=== PATIENT | male | born 1960 | race Caucasian/White ===

== ENCOUNTER 2020-04-08 17:28 | Outpatient (CLI) | payer OTHER, SELFPAY ==
[2020-04-08 17:51] LABS: Add Urine Microscopic? NO; Appearance Urine Clear (Clear); Bilirubin Urine Negative (Negative); Blood Urine Negative (Negative); Color Urine Colorless (Yellow); Glucose Urine UA Negative (Negative); Ketones Urine Negative (Negative); Leukocyte Esterase Ur Negative LEU/UL (NEGATIVE); Nitrate Urine Negative (Negative); Protein Urine Negative (Negative); Specific Grav Ur 1.006 (1.001-1.035); Urobilinogen Urine Negative mg/dL (<2.0)
== END 2020-04-08 17:29 | disposition home or self-care (01) ==
LOC: ANHLAB 17:30
PROVIDERS: PCP Physician Assistant; Visit Provider Physician Assistant
DX: M54.5 Low back pain (principal); Z51.81 Encounter for therapeutic drug level monitoring; Z79.899 Other long term (current) drug therapy
CPT/HCPCS: 81003; 87086

== ENCOUNTER 2023-04-23 09:12 | Emergency (ER) | payer OTHER, SELFPAY ==
[2023-04-23 09:28] VITALS: BP 152/90; PULSE 81; RESP 16; TEMP 37.1; O2SAT 98
--- NOTE | 2023-04-23 09:53 | ED.GENADULT ---
HPI - General Adult General Chief complaint: Skin/Abscess/Foreign Body Stated complaint: Left Foot Toe Irritation Time Seen by Provider: 04/23/23 09:53 Source: patient, RN notes reviewed and old records reviewed Mode of arrival: ambulatory Limitations: no limitations History of Present Illness HPI narrative: 62 year male presents to the [facility] with complaints of a wound that developed to the left great toe. Open to the lateral aspect of the toe. Related Data Allergies Allergy/AdvReac Type Severity Reaction Status Date / Time No Known Allergies Allergy Unknown NONE Verified 04/23/23 09:56 Review of Systems Review of Systems: All systems reviewed & are unremarkable except as noted in HPI and below Constitutional: Constitutional: Reports no additional constitutional complaints Eyes: Eyes: Reports no additional eye complaints ENT: Reports system reviewed and no additional complaints, except as documented Cardiovascular: Cardiovascular: Reports no additional cardiovascular complaints, Denies chest pain and Denies dyspnea Respiratory: Respiratory: Reports no additional respiratory complaints, Denies chest congestion, Denies cough and Denies dyspnea Gastrointestinal: Gastrointestinal: Reports no additional gastrointestinal complaints, Denies abdominal pain, Denies nausea and Denies vomiting Musculoskeletal: Musculoskeletal: Reports no additional musculoskeletal complaints Integumentary/Breasts: Skin/Breast: Reports as per HPI Neurologic: Reports system reviewed and no additional complaints, except as documented Psychiatric: Psychiatric: Reports no additional psychiatric complaints Allergic/Immunologic: Allergic/Immunologic: Reports no additional allergic/immunologic complaints PMFSH Past Medical History Medical History Arthritis Diabetes Hypertension Vision loss Surgical History Surgical History Cervical vertebral fusion Family History Family History Father Acute myocardial infarction Malignant neoplasm of prostate Mother Afib Hypertension Sibling No problems noted. Social History Social History Smoking status: Never smoker Alcohol intake: current Alcohol use details: Occasionally Substance use: never Lack of Transportation: No Lack of Food: Never True Current Housing: I Have Housing Concerned About Future Housing: No Difficulty Paying Gas/Electric Bills: No Difficulty Paying for Meds: No Currently Unemployed: No Education: High School Diploma/GED Difficulty w/ Childcare or Family Care: No Comments At the time of my signature, I reviewed and agree with the nursing past medical, surgical, social, and family history. There is no relevant family history pertinent to the patient complaint. Exam Const: General: cooperative, healthy appearing, comfortable, no acute distress, well developed, alert and well nourished Nutritional Appearance: well nourished Orientation/consciousness: patient oriented x3 Limitations: no limitations HENMT: Head: normal to inspection Ears: hearing grossly normal bilaterally and external ears normal Face/Nose/Sinus: Normal external nose present, Normal nares present, Normal nasal mucous membranes and turbinates present, normal facial exam and face symmetric Face and sinus: normal facial exam and face symmetric Eyes: General: appearance normal, both eyes and all related structures Alignment and Position: alignment normal Periorbital: periorbital findings normal Pupils: Equal, round and reactive pupils present EOM: EOMs intact bilaterally Neck: Neck: normal visual inspection, full ROM, no lymphadenopathy and no meningeal signs Chest: Chest palpation & inspection: normal inspection of the chest Resp: Effort & Inspection:
== END 2023-04-23 10:20 | disposition home or self-care (01) ==
PROVIDERS: Emergency Provider Nurse Practitioner; PCP Physician Assistant
DX: S91.102A Unspecified open wound of left great toe without damage to nail, initial encounter (principal); X58.XXXA Exposure to other specified factors, initial encounter; M19.90 Unspecified osteoarthritis, unspecified site; E11.9 Type 2 diabetes mellitus without complications; I10 Essential (primary) hypertension
CPT/HCPCS: 87070; 87075; 87205; 99213; G0463

== ENCOUNTER 2024-05-16 11:50 | Emergency (ER) | payer OTHER, SELFPAY ==
--- NOTE | ~2024-05-16 | XR_ITS ---
XR knee RT min 4V 05/16/2024 13:11 INDICATION: Right knee pain PROCEDURE: 4 views right knee COMPARISON: No prior studies for comparison. FINDINGS: Fracture, dislocation or subluxation is not identified. There is mild medial compartmental degenerative change. No significant joint effusion. The soft tissues appear within normal limits. No foreign bodies are identified. IMPRESSION: 1: Mild osteoarthritis of the knee primarily involving the medial compartment.. Reviewed, dictated and finalized at location A. [facility]IND[facility] OPERATOR
[2024-05-16 12:00] VITALS: BP 167/89; PULSE 80; RESP 17; TEMP 36.4; O2SAT 97
--- NOTE | 2024-05-16 12:59 | ED.LOWEXIN ---
HPI - Extremity Injury (Lower) General Chief Complaint: Extremity Injury, Lower <Deana Gan PA-C - Last Filed: 05/16/24 13:00> Stated Complaint: R knee pain <Deana Gan PA-C - Last Filed: 05/16/24 13:00> Time Seen by Provider: 05/16/24 13:14 <Deana Gan PA-C - Last Filed: 05/16/24 13:00> Focused HPI: 64-year-old male presents to the emergency department for right knee pain. Patient had a bike race a few months ago and afterwards began developing some right knee pain. Over the past few days he has been shoveling snow which is exacerbated his right knee pain. States while he was walking at work the pain became so severe that it prompted him to come to the ED. states the pain is in the medial aspect of his knee and worse with extension. Denies numbness and tingling. GENERAL: Well-appearing, well-nourished, and in no acute distress. HEAD: Normocephalic, atraumatic. CHEST: Clear to auscultation. ?No respiratory distress. EXT: Tenderness to the proximal medial tibia with no overlying effusion, ecchymosis, deformity. Full active and passive range of motion with increasing pain with extension. No tenderness remainder of lower extremity. DP pulse 2 +. Sensation intact. Negative anterior and posterior drawer. No laxity with varus and valgus stress. HEART: Regular rate and rhythm.? NEURO: ?Alert and oriented x3. Patient screened in triage and initial orders placed.? ?Additional care and disposition to be based upon?diagnostic testing and treatment. <Deana Gan PA-C - Last Filed: 05/16/24 13:00> History of Present Illness HPI Narrative: Agree with HPI. <Santos Flores MD - Last Filed: 05/16/24 14:25> Related Data Allergies/Adverse Reactions: Allergies Allergy/AdvReac Type Severity Reaction Status Date / Time ibuprofen AdvReac Mild Palpitation Verified 05/16/24 13:05 s <Deana Gan PA-C - Last Filed: 05/16/24 13:00> Review of Systems Constitutional: Constitutional: Reports no additional constitutional complaints <Santos Flores MD - Last Filed: 05/16/24 14:25> Musculoskeletal: Musculoskeletal: Denies back pain, Reports arthralgias, Denies joint swelling and Denies muscle cramps <Santos Flores MD - Last Filed: 05/16/24 14:25> Integumentary/Breasts: Skin/Breast: Reports system reviewed and no additional complaints, except as docu <Santos Flores MD - Last Filed: 05/16/24 14:25> PMFSH Past Medical History Medical History: Medical History (Updated 05/16/24 @ 13:50 by Kailee Medina) Hypertension Vision loss Diabetes Arthritis <Deana Gan PA-C - Last Filed: 05/16/24 13:00> Surgical History Surgical History: Surgical History Cervical vertebral fusion <Deana Gan PA-C - Last Filed: 05/16/24 13:00> Family History Family History: Family History Father Acute myocardial infarction Malignant neoplasm of prostate Mother Afib Hypertension Sibling No problems noted. <Deana Gan PA-C - Last Filed: 05/16/24 13:00> Social History Social History: Social History Smoking status: Never smoker Alcohol intake: current Alcohol use details: Occasionally Substance use: never Lack of Transportation: No Lack of Food: Never True Current Housing: I Have Housing Concerned About Future Housing: No Difficulty Paying Gas/Electric Bills: No Difficulty Paying for Meds: No Currently Unemployed: No Education: High School Diploma/GED Difficulty w/ Childcare or Family Care: No <Deana Gan PA-C - Last Filed: 05/16/24 13:00> Exam Narrative: GENERAL: Well-appearing, well-nourished, and in no acute distress. HEAD: Normocephalic, atraumatic. EXTREMITIES: Right knee with mild tenderness to the medial aspect of the joint line. Significant pain with Apley maneuver stressing the medial compartment. No effusion. Normal range of motion. Varicose veins noted left lower extremity posteriorly. SKIN: Warm, dry, no rash. NEURO: Alert and oriented x3. PSYCH: Normal mood and affect. <Santos Flores MD - Last Filed: 05/16/24 14:25> Course Course Emergency Course: Recommend RICE. Needs f/u with ortho. Likely arthritis with meniscus injury. <Santos Flores MD - Last Filed: 05/16/24 14:25> Vital Signs Vital signs: Vital Signs Temperature 97.6 F 05/16/24 12:00 Pulse Rate 80 05/16/24 12:00 Respiratory Rate 17 05/16/24 12:00 Blood Pressure 167/89 H 05/16/24 12:00 Pulse Oximetry 97 05/16/24 12:00 Oxygen Delivery Room Air 05/16/24 12:00 Temperature 97.6 F 05/16/24 12:00 Pulse Rate 80 05/16/24 12:00 Respiratory Rate 17 05/16/24 12:00 Blood Pressure 167/89 H 05/16/24 12:00 Pulse Oximetry 97 05/16/24 12:00 Oxygen Delivery Room Air 05/16/24 12:00 <Deana Gan PA-C - Last Filed: 05/16/24 13:00> Vital Signs Temperature 97.6 F 05/16/24 12:00 Pulse Rate 80 05/16/24 12:00 Respiratory Rate 17 05/16/24 12:00 Blood Pressure 167/89 H 05/16/24 12:00 Pulse Oximetry 97 05/16/24 12:00 Oxygen Delivery Room Air 05/16/24 12:00 Temperature 97.6 F 05/16/24 12:00 Pulse Rate 80 05/16/24 12:00 Respiratory Rate 17 05/16/24 12:00 Blood Pressure 167/89 H 05/16/24 12:00 Pulse Oximetry 97 05/16/24 12:00 Oxygen Delivery Room Air 05/16/24 12:00 <Santos Flores MD - Last Filed: 05/16/24 14:25> MDM - Extremity Injury (Lower) Imaging Data Radiologist's impression: ITS Impressions Knee X-Ray 05/16/24 13:13 IMPRESSION: 1: Mild osteoarthritis of the knee primarily involving the medial compartment.. <Santos Flores MD - Last Filed: 05/16/24 14:25> Discharge Plan Discharge Clinical Impression: Knee meniscus pain <Deana Gan PA-C - Last Filed: 05/16/24 13:00> Patient Disposition: Home, Self-Care <Deana Gan PA-C - Last Filed: 05/16/24 13:00> Condition: Stable <Deana Gan PA-C - Last Filed: 05/16/24 13:00> Instructions: Osteoarthritis (ED), P.R.I.C.E. Treatment (ED), Meniscus Tear (ED) <Deana Gan PA-C - Last Filed: 05/16/24 13:00> Additional Instructions: Wear compressive knee brace. Return the ER if you suffered a new injury, you have chest pain with shortness of breath, or you have additional concerns. <Deana Gan PA-C - Last Filed: 05/16/24 13:00> Patient Language: [place]ian <Deana Gan PA-C - Last Filed: 05/16/24 13:00> Prescriptions: No Action piroxicam 10 mg capsule 10 mg PO DAILY PRN (Reason: back pain) Qty: 90 0RF Rx Instructions: Take with food lisinopril 20 mg tablet 20 mg PO DAILY Qty: 90 2RF <Deana Gan PA-C - Last Filed: 05/16/24 13:00> Follow-up/Referrals: Rose Marie,Mde Reynolds PA-C [Physician Keg Varnisher] - Matthew Mcknight MD [Physician] - 1 Week <Deana Gan PA-C - Last Filed: 05/16/24 13:00> Stand Alone Forms: Work/School Release IP <Deana Gan PA-C - Last Filed: 05/16/24 13:00>
[2024-05-16] MEDS: ACETAMINOPHEN 500 MG TABLET 1000 MG PO (13:37)
== END 2024-05-16 14:37 | disposition home or self-care (01) ==
LOC: ANHED 13:57
PROVIDERS: Emergency Provider Emergency Medicine; PCP Internal Medicine
DX: M25.561 Pain in right knee (principal)
CPT/HCPCS: 73564; 99283; A9270